=== PATIENT | female | born 1980 | race Caucasian/White ===

== ENCOUNTER → 2020-11-19 | Day surgery (SDC) | payer OTHER ==
[~2020-11-19] VITALS: Ht 172.7 cm; Wt 66.2 kg
[~2020-11-19] MED LIST: CATAPRES0.1 MG PO; CLARITIN10 M2 PO; CLINDAMYCIN 15150 MG PO; KETOROLAC TROME10 MG PO; PERCOCET 5-3251 EACH PO; PROTONIX 40MG T40 MG PO; ULTRAM50 MG PO
[2020-11-19 08:15] LABS: HCT 37.6 % (37.0-47.0); HGB 11.6 g/dl (12.5-16.0); MCH 28.3 pg (25.0-31.0); MCHC 30.9 g/dL (32.0-36.0); MCV 91.7 fL (78.0-100.0); MPV 11.5 fL (6.0-9.5); RBC 4.1 M/uL (4.20-5.40); RDW 14.2 % (11.5-14.0); WBC 8.8 K/uL (4.0-10.5)
[2020-11-19 08:36] LABS: ALBUMIN 3.2 g/dL (3.4-5.0); BILIRUBIN - TOTAL 0.2 mg/dL (0.2-1.0); BUN/CREAT RATIO (CALC) 24.8 RATIO; CREATININE 1.09 mg/dL (0.51-0.95); GLOBULIN (CALCULATION) 3.6 g/dL; POTASSIUM 4.7 mmol/L (3.5-5.1); TOTAL PROTEIN 6.8 g/dL (6.4-8.2)
== END | disposition home or self-care (01) ==
LOC: FAS 07:17
PROVIDERS: Surgery
DX: Z45.2 Encounter for adjustment and management of vascular access device (principal); I87.2 Venous insufficiency (chronic) (peripheral); C92.01 Acute myeloblastic leukemia, in remission; J45.909 Unspecified asthma, uncomplicated; K21.9 Gastro-esophageal reflux disease without esophagitis; I10 Essential (primary) hypertension; M81.0 Age-related osteoporosis without current pathological fracture; E11.9 Type 2 diabetes mellitus without complications; Z87.891 Personal history of nicotine dependence; Z98.890 Other specified postprocedural states; Z88.5 Allergy status to narcotic agent; Z88.1 Allergy status to other antibiotic agents; Z88.8 Allergy status to other drugs, medicaments and biological substances; Z79.899 Other long term (current) drug therapy
CPT/HCPCS: 36415; 80053; J2250; J2405; J2704; J3010; J7120

== ENCOUNTER 2021-03-26 16:37 | Emergency (ER) | payer OTHER ==
[~2021-03-26 16:37] MED LIST changes: -CLINDAMYCIN 15150 MG PO; -PERCOCET 5-3251 EACH PO
[2021-03-26 18:22] LABS: BASOPHIL 0.8 % (0-2); EOSINOPHIL 1.3 % (0-5); HCT 40.6 % (37.0-47.0); LYMPHOCYTE 19.6 % (15-48); MCH 28.8 pg (25.0-31.0); MCV 89.8 fL (78.0-100.0); MONOCYTE 11.1 % (0-12); MPV 11.3 fL (6.0-9.5); NEUTROPHIL 66.8 % (41-80); NRBC 0; PLT 372 K/uL (150-400); RBC 4.52 M/uL (4.20-5.40); WBC 16.8 K/uL (4.0-10.5)
[2021-03-26 18:39] LABS: ALBUMIN 3.7 g/dL (3.4-5.0); BILIRUBIN - TOTAL 0.3 mg/dL (0.2-1.0); BUN/CREAT RATIO (CALC) 23.5 RATIO; CREATININE 1.32 mg/dL (0.51-0.95); GLOBULIN (CALCULATION) 5.5 g/dL; POTASSIUM 3.8 mmol/L (3.5-5.1); TOTAL PROTEIN 9.2 g/dL (6.4-8.2)
[2021-03-26] MEDS ORDERED: CLINDAMYCIN 15150 MG PO (19:05)
== END 2021-03-26 21:15 | disposition home or self-care (01) ==
LOC: FER 16:37
PROVIDERS: Physician Assistant
DX: L03.116 Cellulitis of left lower limb (principal); R07.89 Other chest pain; Z88.1 Allergy status to other antibiotic agents; Z79.899 Other long term (current) drug therapy; Z86.2 Personal history of diseases of the blood and blood-forming organs and certain disorders involving the immune mechanism
CPT/HCPCS: 36415; 71045; 73630; 80053; 85025; 93005

== ENCOUNTER 2021-03-28 18:08 | Emergency (ER) | payer OTHER ==
[~2021-03-28 18:08] MED LIST changes: +CLINDAMYCIN 15150 MG PO
[2021-03-28 19:56] LABS: BILIRUBIN NEGATIVE (NEGATIVE); BLOOD NEGATIVE Ery/uL (NEGATIVE); CLARITY CLEAR (CLEAR); COLOR YELLOW (YELLOW); GLUCOSE (U) NORMAL (NORMAL); LEUKOCYTES NEGATIVE Leu/uL (NEGATIVE); NITRITE NEGATIVE (NEGATIVE); PROTEIN NEGATIVE (NEGATIVE); SPECIFIC GRAVITY 1.015 (1.001-1.030); UROBILINOGEN 0.2 mg/dL (0.2-1.0)
[2021-03-28 20:16] LABS: BASOPHIL 1.2 % (0-2); EOSINOPHIL 2.1 % (0-5); HCT 37.8 % (37.0-47.0); HGB 12.1 g/dl (12.5-16.0); LYMPHOCYTE 27.9 % (15-48); MCH 28.8 pg (25.0-31.0); MONOCYTE 12.4 % (0-12); MPV 11.4 fL (6.0-9.5); NEUTROPHIL 55.9 % (41-80); NRBC 0; PLT 379 K/uL (150-400); RDW 15.1 % (11.5-14.0); WBC 12.2 K/uL (4.0-10.5)
[2021-03-28 20:51] LABS: ALBUMIN 3.4 g/dL (3.4-5.0); BILIRUBIN - TOTAL 0.2 mg/dL (0.2-1.0); BUN/CREAT RATIO (CALC) 24.4 RATIO; CREATININE 1.23 mg/dL (0.51-0.95); GLOBULIN (CALCULATION) 5.1 g/dL; POTASSIUM 4.4 mmol/L (3.5-5.1); TOTAL PROTEIN 8.5 g/dL (6.4-8.2)
[2021-03-28 20:58] LABS: LACTIC ACID 1.2 mmol/L (0.4-1.9)
[2021-03-28] MEDS ORDERED: PERCOCET 5-3251 EACH PO (23:45)
== END 2021-03-28 23:57 | disposition home or self-care (01) ==
LOC: FER 18:08
PROVIDERS: Emergency Medicine Emergency Medical Services
DX: M10.072 Idiopathic gout, left ankle and foot (principal); E11.9 Type 2 diabetes mellitus without complications; I10 Essential (primary) hypertension; J45.909 Unspecified asthma, uncomplicated; Z88.0 Allergy status to penicillin; Z88.5 Allergy status to narcotic agent; Z88.6 Allergy status to analgesic agent; Z88.8 Allergy status to other drugs, medicaments and biological substances; Z79.899 Other long term (current) drug therapy
CPT/HCPCS: 36415; 80053; 81003; 83605; 84145; 84550; 85025; 87040; 87088; J2405; J3010

== ENCOUNTER 2022-05-22 20:35 | Emergency (ER) | payer OTHER ==
[~2022-05-22 20:35] MED LIST changes: +PERCOCET 5-3251 EACH PO
== END 2022-05-22 22:49 | disposition home or self-care (01) ==
LOC: FER 20:35
DX: M79.605 Pain in left leg (principal); E10.40 Type 1 diabetes mellitus with diabetic neuropathy, unspecified; I10 Essential (primary) hypertension
CPT/HCPCS: 93971